=== PATIENT | male | born 1960 ===

== ENCOUNTER → 2022-06-28 | Outpatient (CLI) | payer OTHER | LOC: LAB SHORT 13:30 → PLD 13:30 | DX: L30.9 Dermatitis, unspecified (principal) | CPT/HCPCS: 88312 ==

== ENCOUNTER → 2025-03-05 | Outpatient (CLI) | payer BC | LOC: LAB SHORT 13:27 → LAB 13:27 | DX: D48.5 Neoplasm of uncertain behavior of skin (principal) | CPT/HCPCS: 88341; 88342 ==